=== PATIENT | male | born 1975 | race African-American/Black ===

== ENCOUNTER 2017-10-27 08:28 | Day surgery (SDC) | payer MEDICARE, MEDICAID ==
[2017-10-26 13:58] VITALS: BMI 31.8
[2017-10-27] MEDS ORDERED: Bacitracin Zinc Ointment 30 gm TUBE ONE (12:41)
[2017-10-27] MEDS ORDERED: Lidocaine 1% w/Epinephrine 1:200K 30 ML VIAL ONE (12:41)
[2017-10-27] MEDS ORDERED: Fentanyl 100 MCG/2 ML VIAL ONE (12:42)
--- NOTE | 2017-10-27 16:02 | EKG ---
Test Reason : PREOP Blood Pressure : / mmHG Vent. Rate : 086 BPM Atrial Rate : 086 BPM P-R Int : 158 ms QRS Dur : 080 ms QT Int : 354 ms P-R-T Axes : 059 045 015 degrees QTc Int : 423 ms Normal sinus rhythm Normal ECG Confirmed by FELA WHITLEY ([id number]) on 10/27/2017 4:02:10 PM Referred By: KRYS Confirmed By:FELA WHITLEY
[2017-10-27] MEDS ORDERED: Dexamethasone 20 MG/5 ML VIAL ONE (17:18)
[2017-10-27] MEDS ORDERED: Lidocaine 1% PF 5 ML VIAL ONE (17:18)
[2017-10-27] MEDS ORDERED: Ondansetron HCl/PF 4 MG/2 ML Vial ONE (17:18)
[2017-10-27] MEDS ORDERED: Glycopyrrolate 0.2 MG/ML 5 ML SYRINGE ONE (17:18)
[2017-10-27] MEDS ORDERED: Propofol 200 MG/20 ML VIAL ONE (17:18)
[2017-10-27] MEDS ORDERED: Esmolol 100 MG/10 ML VIAL ONE (17:18)
[2017-10-27] MEDS ORDERED: PHENYLEPHRINE-NS 100 MCG/ML 10 ML SYRINGE ONE (17:18)
[2017-10-27] MEDS ORDERED: ePHEDrine/0.9% NaCl/PF SYRINGE 50 mg/10 ml ONE (17:18)
--- NOTE | 2017-10-27 18:41 | OP ---
DATE OF PROCEDURE: 10/27/2017 PREOPERATIVE DIAGNOSIS: Large neck mass. POSTOPERATIVE DIAGNOSIS: Large sebaceous cyst of the submental region. PROCEDURES PERFORMED: 1. Excision of large sebaceous cyst in the submental region. 2. Local flap reconstruction measuring approximately 40 cm. 3. Complex wound closure measuring 11 cm. PROCEDURE IN DETAIL: After consent was obtained, the patient was identified, brought to the OR and p laced on the table in supine position. General endotracheal anesthesia was obtained. The patient wa s positioned for surgery. The patient was positioned with the head down position so that we can gain access to very large submental mass. The mass measured nearly 14 cm in length and 8 cm in width. A n incision was made down through the skin and subcutaneous tissues where the mass was identified. We then dissected along the fascial layer both inferiorly superiorly and raised a flap accordingly. On ce we got down to level of platysma, we were able to dissect the tissue from the deep structures in a hemostatic fashion. The specimen was sent for permanent histologic evaluation. This then left a si gnificant amount of excess skin apart some of which was excised leaving the flap to be rotated into t he defect. The suction drain was then placed and the skin flaps were closed in a complex fashion wit h the platysma being reapproximated followed by the dermis and then the skin. Sterile dressing was a pplied. The patient was awakened, extubated, and taken to recovery room in stable condition prior to discharge home.
== END 2017-10-27 15:45 | disposition home or self-care (01) ==
LOC: SDC 08:28
PROVIDERS: ATTEND Specialist
PROC: 0JB10ZZ Excision of Face Subcutaneous Tissue and Fascia, Open Approach (ICD-10-PCS; principal; 2017-10-27)
PROC: 0HX1XZZ Transfer Face Skin, External Approach (ICD-10-PCS; 2017-10-27)
DX: L72.0 Epidermal cyst (principal); Z98.890 Other specified postprocedural states
CPT/HCPCS: 88304; 93005; 93010; J1100; J2001; J2405; J2704; J3010

== ENCOUNTER 2019-03-23 00:10 | Emergency (ER) | payer MEDICAID, MEDICARE ==
[2019-03-23 00:37] LABS: #Basophils 0.1 thou/uL (0.0-0.2); #Lymphocytes 2.3 thou/uL (1.20-3.40); #Monocytes 0.5 thou/uL (0.11-0.59); #Neutrophils 2.4 thou/uL (1.40-6.50); %Basophils 1.4 % (0.0-1.0); %Eosinophils 0.4 % (0.0-10.0); %Lymphocytes 42.3 % (21.0-51.0); %Monocytes 10.1 % (0.0-10.0); %Neutrophils 45.8 % (42.0-75.0); Hemoglobin 12.9 g/dL (14.0-18.0); Mean Corpuscular HGB CONC 32.6 g/dL (32.0-36.0); Mean Corpuscular Volume 88.9 fL (78.0-98.0); Mean Platelet Volume 8.2 fL (7.4-10.4); Platelet Count 264 thou/uL (130-400); RBC Distribution Width 13.3 % (11.5-14.5); Red Blood Cell (RBC) Count 4.44 mill/uL (4.70-6.10); White Blood Cell (WBC) Count 5.3 thou/uL (4.8-10.8)
[2019-03-23 00:59] LABS: ALT (SGPT) 14 U/L (8-55); AST (SGOT) 34 U/L (5-34); Acetaminophen Less than 6.0 mcg/mL (10.0-30.0); Albumin 4.3 g/dL (3.5-5.0); Alcohol Less than 10 mg/dL (Less than 10); Alkaline Phosphatase 87 U/L (40-150); Anion Gap 15 mmol/L (10-20); BUN (Urea Nitrogen) 14 mg/dL (8.9-20.6); Bilirubin, Total 0.6 mg/dL (0.2-1.2); CK (CPK) 1117 U/L (30-200); Calc. Creatinine Clearance 0 mL/min (70-130); Calcium 9.9 mg/dL (7.8-10.44); Carbon Dioxide 26 mmol/L (22-29); Chloride 99 mmol/L (98-107); Estimated GFR-MDRD 70; Globulin 3.3 g/dL (2.4-3.5); Glucose 92 mg/dL (70-105); Protein, Total 7.6 g/dL (6.0-8.3); Salicylate Less than 8.0 mg/dL (15.0-30.0); Sodium 137 mmol/L (136-145)
[2019-03-23 01:02] LABS: Potassium 2.5 mmol/L (3.5-5.1)
[2019-03-23 01:07] LABS: Medtox Reader # READER 4
[2019-03-23 01:08] LABS: Amphetamine Not Detected (NotDetected); Barbiturates Screen Not Detected (NotDetected); Benzodiazepine Screen Not Detected (NotDetected); Cocaine Metabolite Screen Not Detected (NotDetected); Medtox Control Line Valid? VALID (VALID); Methadone Not Detected (NotDetected); Methamphetamine Not Detected (NotDetected); Opiate Screen Not Detected (NotDetected); Oxycodone Screen Not Detected (NotDetected); Phencyclidine (PCP) Not Detected (NotDetected); THC/Cannabinoid Screen Detected (NotDetected); Tricyclic Screen Not Detected (NotDetected)
== END 2019-03-23 08:18 | disposition home or self-care (01) ==
LOC: ERS 00:10
DX: F31.9 Bipolar disorder, unspecified (principal); E87.6 Hypokalemia
CPT/HCPCS: 36415; 80053; 80306; 80307; 82550; 83735; 84443; 85025; 99284

== ENCOUNTER 2019-03-29 00:18 | Emergency (ER) | payer MEDICARE ==
[2019-03-29] MEDS ORDERED: Ketorolac Tromethamine 30 MG/ML VIAL ONE (00:38)
== END 2019-03-29 00:59 | disposition home or self-care (01) ==
LOC: ERS 00:18
DX: S31.010A Laceration without foreign body of lower back and pelvis without penetration into retroperitoneum, initial encounter (principal); F17.210 Nicotine dependence, cigarettes, uncomplicated; W26.0XXA Contact with knife, initial encounter
CPT/HCPCS: 99282; J1885

== ENCOUNTER 2019-04-01 14:59 | Emergency (ER) | payer MEDICARE ==
--- NOTE | 2019-04-01 15:25 | RAD ---
XR Foot Rt 3 View STANDARD INDICATION: Foot pain COMPARISON: None. FINDINGS: Bones: No acute fracture identified. Joints: The left great toe is held in hyperextension at the IP joint. Alignment appears within normal limits on the lateral projection. Lisfranc alignment: Lisfranc alignment appears within normal limits. Soft tissues: No soft tissue injury demonstrated. No radiographic foreign body demonstrated. IMPRESSION: No acute osseous abnormality.
== END 2019-04-01 15:33 | disposition left against medical advice (07) ==
LOC: ERS 14:59
DX: S93.509A Unspecified sprain of unspecified toe(s), initial encounter (principal); F17.210 Nicotine dependence, cigarettes, uncomplicated; W22.09XA Striking against other stationary object, initial encounter